=== PATIENT | male | born 1945 | race Caucasian/White ===

== ENCOUNTER 2019-04-06 00:48 | Inpatient (IN) | payer OTHER, BC ==
--- NOTE | 2019-04-06 01:02 | PDOC ---
History of Present Illness - General Chief Complaint: Pain, Acute Stated Complaint: ABD PAIN Time Seen by Provider: 04/06/19 01:00 History Source: Patient Exam Limitations: No Limitations - History of Present Illness Initial Comments: 04/06/19 01:12 This is an 73-year-old male with history of multiple bowel obstructions secondary to hernias in the past 2 comes in complaining of abdominal pain and vomiting. Patient said pain is similar to what he's had in the past with a obstruction. Patient otherwise denies any fevers, chills, diarrhea or any other complaints. Allergies: as per nursing notes Past Medical History: none Social history: Lives with family. No smoking. No alcohol. No illicit drugs. Surgical history: None General: No fevers or chills, no weakness, no weight loss HEENT: No change in vision. No sore throat,. No ear pain CardioVascular: no chest discomfort. No shortness of breath Respiratory:No cough, or wheezing. Gastrointestinal: + nausea, + vomiting, diarrhea or constipation, No rectal bleeding, +abd pain Genitourinary: No dysuria, hematuria, or frequency Musculoskeletal: No joint or muscle pain or swelling Neurologic: No headache, vertigo, dizziness or loss of consciousness Psychiatric: nor depression Skin: No rashes or easy bruising Endocrine: no increased thirst or abnormal weight change Allergic: no skin or latex allergy All other systems reviewed and normal Exam: General: Well-nourished well-developed individual, no acute distress HEENT: Throat: Normal, tonsils normal, no erythema or exudate Neck: Supple, no meningeal signs, no lymphadenopathy Eyes::Pupils equal reactive and round, extraocular motion intact Chest: Nontender to palpation Cardiac: S1-S2 normal, regular rate and rhythm, no murmurs rubs or gallops Respiratory: Lungs clear to auscultation bilateral Abdomen: Soft, nondistended, bowel sounds are decreased, there is some mild tenderness on palpation right lower quadrant no guarding or rebound. There is a nontender palpable periumbilical hernia. Extremities: Warm, dry, no cyanosis, clubbing, or edema Skin: No rashes Neuro: Alert and oriented x3, CN II - XII intact, nonfocal exam with normal strength, normal sensation, normal reflexes, normal gait, Psych: Normal mood and affect Assessment plan: This is a 73-year-old male with history of multiple small bowel obstructions in the past with similar pain now. Workup initiated including CBC, comp, lactic, lipase, EKG, chest x-ray, CAT scan abdomen and pelvis. Patient given IV fluids 04/06/19 02:21 CAT scan did show small bowel obstruction. Patient said the has had multiple ones in the past all of which resolved with bowel rest. Patient will be admitted to an inpatient bed by the admitting team. Past History - Past Medical History Allergies/Adverse Reactions: Allergies Allergy/AdvReac Type Severity Reaction Status Date / Time No Known Allergies Allergy Verified 10/29/13 09:40 Home Medications: Ambulatory Orders Aspirin/Dipyridamole [Aggrenox -] 1 combo PO BID 10/29/13 Atorvastatin Ca [Lipitor -] 20 mg PO HS 10/29/13 Montelukast Na [Singulair -] 10 mg PO HS 10/29/13 Tadalafil [Cialis] 20 mg PO ASDIR PRN 10/29/13 metFORMIN HCL [Glucophage -] 1,000 mg PO BID 10/29/13 Azithromycin 250 mg PO WEEKLY 04/06/19 Diltiazem HCl [Cartia Xt] 240 mg PO DAILY 04/06/19 Docusate Sodium [Stool Softener] 100 mg PO DAILY 04/06/19 Omeprazole 40 mg PO DAILY 04/06/19 Telmisartan 80 mg PO DAILY 04/06/19 Tiotropium [place] [Spiriva] 1 inh PO DAILY 04/06/19 Asthma: Yes Diabetes: Yes HTN: Yes Hypercholesterolemia: Yes - Surgical History Abdominal Surgery: Yes (partial colectomy 09, 3 hernia repair) - Immunization History Td Vaccination: Yes TDAP Vaccination: Yes Immunization Up to Date: No - Suicide/Smoking/Psychosocial Hx Smoking Status: No Smoking History: Unknown if ever smoked Have you smoked in the past 12 months: No Number of Cigarettes Smoked Daily: 0 Cigars Per Day: 0 Hx Alcohol Use: (unknown) Drug/Substance Use Hx: No Substance Use Type: Marijuana (daily use per patietn) Hx Substance Use Treatment: No ED Treatment Course - LABORATORY CBC & Chemistry Diagram: 04/06/19 01:15 04/06/19 01:15 *DC/Admit/Observation/Transfer Diagnosis at time of Disposition: SBO (small bowel obstruction) - Discharge Dispostion Condition at time of disposition: Stable Decision to Admit order: Yes - Referrals - Patient Instructions - Post Discharge Activity
[2019-04-06] MEDS ORDERED: SODIUM CHLORIDE 1,000 ML IV SCH (01:15)
[2019-04-06 01:44] LABS: BASO % 0.7 % (0-2.0); HEMATOCRIT 44.3 % (35.4-49); LYMPH % 15.9 % (8-40); MCH 32.3 pg (25.7-33.7); MCHC 33.9 g/dl (32.0-35.9); MEAN CELL VOLUME 95.3 fl (80-96); MONO % 8.2 % (3.8-10.2); NEUT % 72.2 % (42.8-82.8); PLATELET COUNT 144 K/MM3 (134-434); RBC 4.64 M/mm3 (4.00-5.60); WHITE BLOOD COUNT 9.2 K/mm3 (4.0-10.0)
[2019-04-06 02:04] LABS: INR 1.05 (0.83-1.09); PROTHROMBIN TIME (PATIENT) 12.4 SEC (9.7-13.0)
[2019-04-06 02:08] LABS: ALBUMIN 3.9 g/dl (3.4-5.0); ALK PHOS 68 U/L (45-117); ANION GAP 9 MMOL/L (8-16); BLOOD UREA NITROGEN 11.3 mg/dL (7-18); CALCIUM 9.3 mg/dL (8.5-10.1); CHLORIDE 107 mmol/L (98-107); CO2 26 mmol/L (21-32); CREATININE 0.9 mg/dL (0.55-1.3); GLUCOSE,RANDOM 148 mg/dL (74-106); LIPASE 52 U/L (73-393); SGOT/AST 15 U/L (15-37); SGPT/ALT 22 U/L (13-61); SODIUM 142 mmol/L (136-145); TOT PROT 6.8 g/dl (6.4-8.2)
[2019-04-06] MEDS ORDERED: DEXTROSE 5%-0.45% SALINE 1,000 ML IV SCH (02:45)
[2019-04-06 03:40] VITALS: BMI 28.3
--- NOTE | 2019-04-06 09:14 | EKG ---
Test Reason : Blood Pressure : / mmHG Vent. Rate : 054 BPM Atrial Rate : 054 BPM P-R Int : 156 ms QRS Dur : 094 ms QT Int : 430 ms P-R-T Axes : 067 003 025 degrees QTc Int : 407 ms SINUS BRADYCARDIA OTHERWISE NORMAL ECG WHEN COMPARED WITH ECG OF 29-OCT-2013 08:38, NO SIGNIFICANT CHANGE WAS FOUND Confirmed by RASHARD ALEXANDER MD ([id number]) on 04/06/2019 9:13:33 AM Referred By: MD CRONIN Confirmed By:RASHARD ALEXANDER MD
--- NOTE | 2019-04-06 09:22 | HP ---
CHIEF COMPLAINT: Abdominal pain,vomiting. PCP: HISTORY OF PRESENT ILLNESS: This is a 73-year-old male with history of multiple abdominal surgeries ,small bowel obstructions in the past with similar pain, who presents to ER complaining of abdominal pain and vomiting. Pt reports abdominal pain started on Sunday while on vacation in [place], pain started slowly with mild to moderate pain with belching/ vomiting. Pt denies nausea, fever, chills, KEENAN, dizziness, cp, sob, palpitations or urinary symptoms. Last BM on Sunday. Now pt remains pain free, no N/V/D and reports passing flatus. ER course was notable for: (1)CAT scan showed small bowel obstruction ( preliminary report) (2) CXER: No acute pathology (3) Temp 97.8, wbc 9.2, Lipase 52 Recent Travel:Yes [place] PAST MEDICAL HISTORY: COPD Multiple Small bowel obstructions which resolved without surgery Hypertension Diabetes mellitus Asthma Gout HDL PAST SURGICAL HISTORY: Partial colectomy for diverticulitis 1998, removed 19.5 cm colon Abdominal wall hernia repair with mesh 2006 Hx of infected mesh Removed adhesion in 2006 at [facility] Social History: Smoking: Ex- smoker- quit in 1972 Alcohol: occ beer use Drugs: Marijuana use Family History: Father CAD, DM Sister - COPD Allergies No Known Allergies Allergy (Verified 10/29/13 09:40) HOME MEDICATIONS: Home Medications Medication Instructions Recorded Aspirin/Dipyridamole [Aggrenox -] 1 combo PO BID 10/29/13 Atorvastatin Ca [Lipitor -] 20 mg PO HS 10/29/13 Montelukast Na [Singulair -] 10 mg PO HS 10/29/13 Tadalafil [Cialis] 20 mg PO ASDIR PRN 10/29/13 metFORMIN HCL [Glucophage -] 1,000 mg PO BID 10/29/13 Azithromycin 250 mg PO WEEKLY 04/06/19 Diltiazem HCl [Cartia Xt] 240 mg PO DAILY 04/06/19 Docusate Sodium [Stool Softener] 100 mg PO DAILY 04/06/19 Omeprazole 40 mg PO DAILY 04/06/19 Telmisartan 80 mg PO DAILY 04/06/19 Tiotropium [place] [Spiriva] 1 inh PO DAILY 04/06/19 REVIEW OF SYSTEMS CONSTITUTIONAL: Absent: fever, chills, diaphoresis, generalized weakness, malaise, loss of appetite, weight change HEENT: Absent: rhinorrhea, nasal congestion, throat pain, throat swelling, difficulty swallowing, mouth swelling, ear pain, eye pain, visual changes CARDIOVASCULAR: Absent: chest pain, syncope, palpitations, irregular heart rate, lightheadedness , peripheral edema RESPIRATORY: Absent: cough, shortness of breath, dyspnea with exertion, orthopnea, wheezing, stridor, hemoptysis GASTROINTESTINAL: Absent: abdominal pain, abdominal distension, nausea, vomiting, diarrhea, constipation, melena, hematochezia GENITOURINARY: Absent: dysuria, frequency, urgency, hesitancy, hematuria, flank pain, genital pain MUSCULOSKELETAL: Absent: myalgia, arthralgia, joint swelling, back pain, neck pain SKIN: Absent: rash, itching, pallor HEMATOLOGIC/IMMUNOLOGIC: Absent: easy bleeding, easy bruising, lymphadenopathy, frequent infections ENDOCRINE: Absent: unexplained weight gain, unexplained weight loss, heat intolerance, cold intolerance NEUROLOGIC: Absent: headache, focal weakness or paresthesias, dizziness, unsteady gait, seizure, mental status changes, bladder or bowel incontinence PSYCHIATRIC: Absent: anxiety, depression, suicidal or homicidal ideation, hallucinations. PHYSICAL EXAMINATION Vital Signs - 24 hr 04/06/19 04/06/19 04/06/19 00:49 02:23 03:27 Temperature 99.5 F 99 F 98.9 F Pulse Rate 66 57 L Pulse Rate [ 57 L Radial] Respiratory 18 16 17 Rate Blood Pressure 152/107 H 153/93 Blood Pressure 164/98 [Arm] O2 Sat by Pulse 98 97 96 Oximetry (%) 04/06/19 06:48 Temperature 97.8 F Pulse Rate 59 L Pulse Rate [ Radial] Respiratory 18 Rate Blood Pressure 151/96 Blood Pressure [Arm] O2 Sat by Pulse 96 Oximetry (%) GENERAL: Awake, alert, and fully oriented, in no acute distress. HEAD: Normal with no signs of trauma. EYES: Pupils equal, round and reactive to light, extraocular movements intact, sclera anicteric, conjunctiva clear. No lid lag. EARS, NOSE, THROAT: Ears normal, nares patent, oropharynx clear without exudates. Moist mucous membranes. NECK: Normal range of motion, supple without lymphadenopathy, JVD, or masses. LUNGS: Breath sounds equal, clear to auscultation bilaterally. No wheezes, and no crackles. No accessory muscle use. HEART: Regular rate and rhythm, normal S1 and S2 without murmur, rub or gallop. ABDOMEN: Soft, nontender, not distended, normoactive bowel sounds, no guarding, no rebound, no masses. No hepatomegaly or splenomegaly. MUSCULOSKELETAL: Normal range of motion at all joints. No bony deformities or tenderness. No CVA tenderness. UPPER EXTREMITIES: 2+ pulses, warm, well-perfused. No cyanosis. No clubbing. No peripheral edema. LOWER EXTREMITIES: 2+ pulses, warm, well-perfused. No calf tenderness. No peripheral edema. NEUROLOGICAL: Cranial nerves II-XII intact. Normal speech. Normal gait. PSYCHIATRIC: Cooperative. Good eye contact. Appropriate mood and affect. SKIN: Warm, dry, normal turgor, no rashes or lesions noted, normal capillary refill. Laboratory Results - last 24 hr 04/06/19 04/06/19 04/06/19 01:15 01:15 01:15 WBC 9.2 RBC 4.64 Hgb 15.0 Hct 44.3 MCV 95.3 MCH 32.3 MCHC 33.9 RDW 13.0 Plt Count 144 MPV 10.0 Absolute Neuts (auto) 6.7 Neutrophils % 72.2 Lymphocytes % 15.9 Monocytes % 8.2 Eosinophils % 3.0 Basophils % 0.7 Nucleated RBC % 0 PT with INR INR PTT (Actin FS) Sodium 142 Potassium 4.0 Chloride 107 Carbon Dioxide 26 Anion Gap 9 BUN 11.3 Creatinine 0.9 Est GFR (CKD-EPI)AfAm 99.24 Est GFR (CKD-EPI)NonAf 85.63 Random Glucose 148 H Lactic Acid Calcium 9.3 Total Bilirubin 1.0 AST 15 ALT 22 Alkaline Phosphatase 68 Creatine Kinase 97 Troponin I Cancelled < 0.02 Total Protein 6.8 Albumin 3.9 Lipase 52 L 04/06/19 04/06/19 04/06/19 01:15 01:15 01:15 WBC RBC Hgb Hct MCV MCH MCHC RDW Plt Count MPV Absolute Neuts (auto) Neutrophils % Lymphocytes % Monocytes % Eosinophils % Basophils % Nucleated RBC % PT with INR INR PTT (Actin FS) 34.4 Sodium Potassium Chloride Carbon Dioxide Anion Gap BUN Creatinine Est GFR (CKD-EPI)AfAm Est GFR (CKD-EPI)NonAf Random Glucose Lactic Acid 1.5 Calcium Total Bilirubin AST ALT Alkaline Phosphatase Creatine Kinase Troponin I Total Protein Albumin Lipase Cancelled 04/06/19 01:15 WBC RBC Hgb Hct MCV MCH MCHC RDW Plt Count MPV Absolute Neuts (auto) Neutrophils % Lymphocytes % Monocytes % Eosinophils % Basophils % Nucleated RBC % PT with INR 12.40 INR 1.05 PTT (Actin FS) Sodium Potassium Chloride Carbon Dioxide Anion Gap BUN Creatinine Est GFR (CKD-EPI)AfAm Est GFR (CKD-EPI)NonAf Random Glucose Lactic Acid Calcium Total Bilirubin AST ALT Alkaline Phosphatase Creatine Kinase Troponin I Total Protein Albumin Lipase ASSESSMENT/PLAN: This is a 73-year-old male with history of multiple abdominal surgeries ,small bowel obstructions in the past with similar pain, who presents to ER complaining of abdominal pain and vomiting. Admitted with SBO *Recurrent SBO - passing flatus, BS present - on IVF - sx consult by Dr. Bteh, rec non- surgical intervention -afebrile with no leukocytosis - Lipase 52 - will start on clears and advance as tolerated * HTN - will cont on home med Telmisartan * HDL - will cont on Statin * DM - will hols off Metformin - FS AC& HS - Insulin sliding scale *COPD- stable - on Spiriva - on Prophylaxis Zithromax 250mg TIW ( MW/F) F/E/N NPO IVF VTE: Heparin SQ Visit type - Emergency Visit Emergency Visit: Yes ED Registration Date: 04/06/19 Care time: The patient presented to the Emergency Department on the above date and was hospitalized for further evaluation of their emergent condition. - New Patient This patient is new to me today: Yes Date on this admission: 04/06/19 - Critical Care Critical Care patient: No
--- NOTE | 2019-04-06 12:18 | CONSULT ---
Consult Consult Specialty:: General Surgery Reason for Consultation:: repeated bowel obstruction - History of Present Illness Chief Complaint: abdominal pain and vomiting History of Present Illness: 73 yo male PMH multiple abdominal surgeries follow a diverticulitis, small bowel obstructions in the past with similar pain, who presents to ER complaining of abdominal pain and vomiting. Pt reports abdominal pain started on Sunday while on vacation in [place], pain started slowly with mild to moderate pain with belching/ vomiting. Pt denies nausea, fever, chills, KEENA[place], dizziness, cp, sob, palpitations or urinary symptoms. Last BM on Sunday. Now pt remains pain free, no N/V/D and reports passing flatus. We were called to assess. - History Source History Provided By: Patient, Medical Record Limitations to Obtaining History: No Limitations - Alcohol/Substance Use Hx Alcohol Use: Yes (very minimal) - Smoking History Smoking history: Former smoker Have you smoked in the past 12 months: No Aproximately how many cigarettes per day: 0 Home Medications - Allergies Allergies/Adverse Reactions: Allergies Allergy/AdvReac Type Severity Reaction Status Date / Time No Known Allergies Allergy Verified 10/29/13 09:40 - Home Medications Home Medications: Ambulatory Orders Aspirin/Dipyridamole [Aggrenox -] 1 combo PO BID 10/29/13 Atorvastatin Ca [Lipitor -] 20 mg PO HS 10/29/13 Montelukast Na [Singulair -] 10 mg PO HS 10/29/13 Tadalafil [Cialis] 20 mg PO ASDIR PRN 10/29/13 metFORMIN HCL [Glucophage -] 1,000 mg PO BID 10/29/13 Azithromycin 250 mg PO WEEKLY 04/06/19 Diltiazem HCl [Cartia Xt] 240 mg PO DAILY 04/06/19 Docusate Sodium [Stool Softener] 100 mg PO DAILY 04/06/19 Omeprazole 40 mg PO DAILY 04/06/19 Telmisartan 80 mg PO DAILY 04/06/19 Tiotropium [place] [Spiriva] 1 inh PO DAILY 04/06/19 Physical Exam Vital Signs: Vital Signs Temperature 97.8 F 04/06/19 06:48 Pulse Rate 59 L 04/06/19 06:48 Respiratory Rate 18 04/06/19 06:48 Blood Pressure 151/96 04/06/19 06:48 O2 Sat by Pulse Oximetry (%) 96 04/06/19 06:48 Constitutional: Yes: Well Nourished, No Distress, Calm Eyes: Yes: Conjunctiva Clear, EOM Intact HENT: Yes: Atraumatic, Normocephalic Neck: Yes: Supple, Trachea Midline Cardiovascular: Yes: Regular Rate and Rhythm. No: S1, S2 Respiratory: Yes: Regular. No: CTA Bilaterally Gastrointestinal: Yes: Normal Bowel Sounds, Soft. No: Tenderness, Tenderness, Epigastrium, Tenderness, Rebound, Vomiting ...Rectal Exam: Yes: Sphincter Tone Normal. No: Induration, Mass Renal/: No: CVA Tenderness - Left, CVA Tenderness - Right Musculoskeletal: No: Joint Swelling, Muscle Weakness Extremities: No: Cool, Cyanosis Wound/Incision: Yes: Clean/Dry, Bleeding, Unapproximated Neurological: Yes: Alert, Oriented Psychiatric: Yes: Alert, Oriented Labs: CBC, BMP 04/06/19 01:15 04/06/19 01:15 Imaging - Results Chest X-ray: Report Reviewed, Image Reviewed Cat Scan: Report Reviewed, Image Reviewed Problem List - Problems (1) SBO (small bowel obstruction) Assessment/Plan: 73 yo male with resolving SBO after a steak dinner. No indication for surgical intervention. Management per primary medical team clear liquids and advance as tolerated surgical follow up at [facility] Thank you for the opportunity to participate in the care of this patient. Code(s): K56.609 - UNSP INTESTNL OBST, UNSP TO PARTIAL VERSUS COMPLETE OBST (2) H/O ventral hernia repair Code(s): Z98.890 - OTHER SPECIFIED POSTPROCEDURAL STATES; Z87.19 - PERSONAL HISTORY OF OTHER DISEASES OF THE DIGESTIVE SYSTEM (3) Abdominal pain in male Code(s): R10.9 - UNSPECIFIED ABDOMINAL PAIN (4) TIA (transient ischemic attack) Code(s): G45.9 - TRANSIENT CEREBRAL ISCHEMIC ATTACK, UNSPECIFIED
[2019-04-06] MEDS: PANTOPRAZOLE 40 MG TABLET (FP) PO SCH (12:23)
[2019-04-06] MEDS: VALSARTAN 160 MG TABLET (UD) PO SCH (12:23)
[2019-04-06] MEDS: DOCUSATE SODIUM 100 MG CAPSULE (FP) PO SCH (12:24)
[2019-04-06] MEDS: INSULIN SLIDING SCALE (NOVOLOG) 1 VIAL SQ SCH ×3 (12:24→22:02)
[2019-04-06] MEDS: TIOTROPIUM BROMIDE 2.5 MCG (SPIRIVA) RESPIMAT INHALER IH SCH (12:24)
[2019-04-06] MEDS: HEPARIN NA (PORCINE) 5,000 UNITS/ML 1ML VIAL SQ SCH ×2 (12:25→21:49)
[2019-04-06] MEDS ORDERED: PT OWN MED DRAWER 7, Y5N ONE (21:47)
[2019-04-06] MEDS: ASPIRIN/DIPYRIDAMOLE 25 MG/200 MG CAPSULE (FP) PO SCH (21:49)
[2019-04-06] MEDS ORDERED: ATORVASTATIN CA 20 MG TABLET (FP) PO SCH (22:00)
[2019-04-06] MEDS ORDERED: MONTELUKAST NA 10 MG TABLET PO SCH (22:00)
[2019-04-06] MEDS ORDERED: hydrALAZINE HCL 20 MG/ML VIAL IVPUSH ONE (22:55)
[2019-04-07] MEDS ORDERED: hydrALAZINE HCL 10 MG TABLET PO SCH (06:00)
[2019-04-07 08:19] LABS: BASO % 0.4 % (0-2.0); EOS % 3.8 % (0-4.5); HEMATOCRIT 45.9 % (35.4-49); HEMOGLOBIN 15.7 GM/dl (11.7-16.9); LYMPH % 13.4 % (8-40); MCH 32.6 pg (25.7-33.7); MCHC 34.1 g/dl (32.0-35.9); MEAN CELL VOLUME 95.5 fl (80-96); MEAN PLT VOLUME 9.9 fl (7.5-11.1); NEUT % 74.4 % (42.8-82.8); PLATELET COUNT 155 K/MM3 (134-434); RBC 4.81 M/mm3 (4.00-5.60); RDW 12.3 % (11.9-15.9); WHITE BLOOD COUNT 8.2 K/mm3 (4.0-10.8)
[2019-04-07 09:13] LABS: CALCIUM 9.3 mg/dl (8.5-10); CREATININE 0.8 mg/dl (0.55-1.3); POTASSIUM 3.6 mmol/L (3.5-5.1)
[2019-04-07] MEDS ORDERED: PT OWN MED DRAWER 7, Y5N ONE (10:12)
--- NOTE | 2019-04-07 10:17 | DS ---
Physical Exam: SUBJECTIVE: Patient seen and examined OBJECTIVE: Vital Signs Period Temp Pulse Resp BP Sys/Gagnon Pulse Ox Last 24 Hr 97.8 F-99.1 F 55-70 16-19 122-161/85-102 94-98 PHYSICAL EXAM GENERAL: The patient is awake, alert, and fully oriented, in no acute distress. HEAD: Normal with no signs of trauma. EYES: PERRL, extraocular movements intact, sclera anicteric, conjunctiva clear. ENT: Ears normal, nares patent, oropharynx clear without exudates, moist mucous membranes. NECK: Trachea midline, full range of motion, supple. LUNGS: Breath sounds equal, clear to auscultation bilaterally, no wheezes, no crackles, no accessory muscle use. HEART: Regular rate and rhythm, S1, S2 without murmur, rub or gallop. ABDOMEN: Soft, nontender, nondistended, normoactive bowel sounds, no guarding, no rebound, no hepatosplenomegaly, no masses. EXTREMITIES: 2+ pulses, warm, well-perfused, no edema. NEUROLOGICAL: Cranial nerves II through XII grossly intact. Normal speech, gait not observed. PSYCH: Normal mood, normal affect. SKIN: Warm, dry, normal turgor, no rashes or lesions noted. LABS Laboratory Results - last 24 hr 04/06/19 04/06/19 04/06/19 12:22 17:21 21:57 WBC RBC Hgb Hct MCV MCH MCHC RDW Plt Count MPV Absolute Neuts (auto) Neutrophils % Lymphocytes % Monocytes % Eosinophils % Basophils % Sodium Potassium Chloride Carbon Dioxide Anion Gap BUN Creatinine Est GFR (CKD-EPI)AfAm Est GFR (CKD-EPI)NonAf POC Glucometer 140 139 103 Random Glucose Calcium 04/07/19 04/07/19 04/07/19 06:49 07:00 07:00 WBC 8.2 RBC 4.81 Hgb 15.7 Hct 45.9 MCV 95.5 MCH 32.6 MCHC 34.1 RDW 12.3 Plt Count 155 D MPV 9.9 Absolute Neuts (auto) 6.1 Neutrophils % 74.4 Lymphocytes % 13.4 Monocytes % 8.0 Eosinophils % 3.8 D Basophils % 0.4 Sodium 138 Potassium 3.6 Chloride 105 Carbon Dioxide 26 Anion Gap 7 L BUN 9.0 Creatinine 0.8 Est GFR (CKD-EPI)AfAm 104.17 Est GFR (CKD-EPI)NonAf 89.88 POC Glucometer 163 Random Glucose 155 H Calcium 9.3 HOSPITAL COURSE: Date of Admission:04/06/19 Date of Discharge: 04/07/19 Pre hospital course This is a 73-year-old male with a PMH significant for HTN, HLD, NIDDM, asthma/ COPD, gout, mutiple abdominal surgeries, multiple SBOs, and diverticulitis who presented to the ED for evaluation of abdominal pain and vomiting. The pain started the day before after eating a steak dinner. He had belching and vomiting. Denied fever, sweats, chills. ER course (1) CTAP: possible partial SBO Subsequent hospital course Patient was started on IV fluids and kept NPO. He had a large bowel movement on HOD #1 and passed flatus. He was seen and evaluated by surgery, no surgical intervention was indicated. He was started on a clear liquid diet and his diet was advanced as tolerated. Minutes to complete discharge: 35 Discharge Summary Reason For Visit: SMALL BOWEL OBSTRUCTION. Current Active Problems Abdominal pain in male (Acute) H/O ventral hernia repair (Acute) SBO (small bowel obstruction) (Acute) Condition: Improved - Instructions Diet, Activity, Other Instructions: Advance your diet slowly. Eat small, more frequent meals. Stay well-hydrated. Return to the emergency department for any new or worsening symptoms. Disposition: HOME - Home Medications Comprehensive Discharge Medication List: Ambulatory Orders Aspirin/Dipyridamole [Aggrenox -] 1 combo PO BID 10/29/13 Atorvastatin Ca [Lipitor -] 20 mg PO HS 10/29/13 Montelukast Na [Singulair -] 10 mg PO HS 10/29/13 Tadalafil [Cialis] 20 mg PO ASDIR PRN 10/29/13 metFORMIN HCL [Glucophage -] 1,000 mg PO BID 10/29/13 Azithromycin 250 mg PO WEEKLY 04/06/19 Diltiazem HCl [Cartia Xt] 240 mg PO DAILY 04/06/19 Docusate Sodium [Stool Softener] 100 mg PO DAILY 04/06/19 Omeprazole 40 mg PO DAILY 04/06/19 Telmisartan 80 mg PO DAILY 04/06/19 Tiotropium [place] [Spiriva] 1 inh PO DAILY 04/06/19 This patient is new to me today: Yes Date on this admission: 04/07/19 Emergency Visit: Yes ED Registration Date: 04/06/19 Care time: The patient presented to the Emergency Department on the above date and was hospitalized for further evaluation of their emergent condition. Critical Care patient: No - Discharge Referral Referred to [facility] No
[2019-04-07] MEDS: PANTOPRAZOLE 40 MG TABLET (FP) PO SCH (10:46)
[2019-04-07] MEDS: DOCUSATE SODIUM 100 MG CAPSULE (FP) PO SCH (10:46)
[2019-04-07] MEDS: VALSARTAN 160 MG TABLET (UD) PO SCH (10:46)
[2019-04-07] MEDS: ASPIRIN/DIPYRIDAMOLE 25 MG/200 MG CAPSULE (FP) PO SCH (10:47)
[2019-04-07] MEDS: TIOTROPIUM BROMIDE 2.5 MCG (SPIRIVA) RESPIMAT INHALER IH SCH (10:47)
[2019-04-07] MEDS: HEPARIN NA (PORCINE) 5,000 UNITS/ML 1ML VIAL SQ SCH (10:48)
[2019-04-07 14:11] VITALS: BP 132/92; PULSE 101; TEMP 98.9
== END 2019-04-07 14:40 | disposition home or self-care (01) | DRG 390 ==
LOC: FER 00:48 → FM/S 02:45
PROVIDERS: ADMIT Internal Medicine; ATTEND Nurse Practitioner Acute Care
DX: K56.699 Other intestinal obstruction unspecified as to partial versus complete obstruction (principal); J44.9 Chronic obstructive pulmonary disease, unspecified; I10 Essential (primary) hypertension; E11.9 Type 2 diabetes mellitus without complications; M10.9 Gout, unspecified; E78.5 Hyperlipidemia, unspecified; Z87.891 Personal history of nicotine dependence; Z79.84 Long term (current) use of oral hypoglycemic drugs
CPT/HCPCS: 36415; 71045-TC-FY; 74176-TC; 80048; 80053; 82550; 82962; 83605; 83690; 84484; 85025; 85610; 85730; 93005; 99285-25; J1644; J7030

== ENCOUNTER 2020-09-16 14:15 | Emergency (ER) | payer OTHER, BC | END 2020-09-16 14:41 | disposition home or self-care (01) | LOC: JVIRT 14:15 | DX: Z20.822 Contact with and (suspected) exposure to COVID-19 (principal) | CPT/HCPCS: C9803; Q3014-GT; U0003 ==